=== PATIENT | female | born 1930 | race Caucasian/White ===

== ENCOUNTER 2016-07-25 13:55 | Emergency (ER) | payer OTHER, BC ==
[~2016-07-25] VITALS: Ht 157.5 cm; Wt 54.7 kg
[~2016-07-25 13:55] MED LIST: ACETAMINOPHN-T1 EACH PO; ADALAT CC 30 MG30 MG PO; AFEDITAB CR30 MG PO; ALEVE220 M2 PO; ALEVE220 MG PO; ASPIRIN81 M2 PO; ATIVAN0.5 MG PO; Aspirin E.C. PO; CALCIUM 500 +1 EAC1 PO; CALCIUM 600 +1 EAC4 PO; CENTRUM SILVER1 EAC4 PO; CHILDREN'S ASPI81 M1 PO; COZAAR100 MG PO; Cipro PO; Colace PO; Cozaar PO; DITROPAN5 MG PO; Ditropan PO; Dulcolax PO; ECOTRIN81 M1 PO; ERYTHROMYC1 APPLICAT BOTH EYES; FLEXERIL5 MG PO; FLOVENT 11120 INHALA IH; FOLIC ACID1 MG PO; FORTEO; FORTEO20 MICROGR SC; FOSAMAX70 MG PO; Fosamax PO; HYDROCODON-ACE1 EAC7 PO; LIDODERM 5% P1 PATCH PO; LIPO FLAVONOID PLUS PO; LIPO-FLAVONO1 TABLET PO; LO-DOSE ASPIRIN81 M1 PO; LOPRESSOR50 MG PO; LOTRISONE15 GM TP; LUBRICANT EYE D15 M2 BOTH EYES; Lopressor PO; METOPROLOL TART25 MG PO; METOPROLOL TART50 MG PO; MINITRAN1 EACH TD; MYRBETRIQ25 MG PO; NAPROSYN250 MG PO; NAPROXEN500 MG PO; NEXIUM40 MG PO; NIFEDICAL XL30 MG PO; NIFEDIPINE ER30 MG PO; NITRO-DUR1 EAC1 TD; NITROGLYCERIN0.4 MG SL; Nitrostat,NitroQuick SL; OS-CAL ULTRA T1 EACH; OSCAL, OYSTER500 MG PO; OSTEO BI-FLEX1 EAC1 PO; OSTEO BI-FLEX1 EAC2 PO; OSTEO BI-FLEX1 EAC3 PO; OSTEO-BIFLE1 CAPSULE PO; Oscal 500 w/Vitamin PO; Osteo-Biflex,Flex-A- PO; PROAIR HFA8.5 GM IH; PROCARDIA XL30 MG PO; Protonix PO; REFRESH EYE DR1 EACH OP; REFRESH OPTIVE; REFRESH5 ML BOTH EYES; SIMVASTATIN40 MG PO; SINGULAIR10 MG PO; SYSTANE 0.3-0.1 EACH BOTH EYES; SYSTANE 0.300 DROP/1 BOTH EYES; Senokot S,Pericolace PO; Singulair PO; TOPROL XL50 MG PO; TRAMADOL HCL50 MG PO; TRANSDERM-NITR0.4 MG TD; TYLENOL WITH C1 EACH PO; Theragran PO; Tylenol Regular Stre PO; ULTRACET1 TABLET PO; Ultracet PO; VALIUM5 MG PO; VESICARE10 MG PO; VICODIN,LORT1 TABLET PO; VITAMIN C1000 MG PO; VITAMIN D1000 UNIT PO; VITAMIN D31000 UNI2 PO; VITAMIN D31000 UNIT PO; VYTORIN 10-401 EACH PO; VYTORIN 10/41 TABLET PO; Vicodin,Norco 5/325 PO; Vitamin D PO; Vytorin 10/40 PO
[2016-07-25 15:59] LABS: HEMATOCRIT 35.4 % (36.0-46.0); MCH 29.6 PG (29.0-34.0); MCHC 32.8 G/DL (30.0-36.0); MCV 90.3 FL (83-99); MEAN PLAT.VOLUME 9.8 uM^3 (9.5-12.4); PLATELET COUNT 200 K/uL (156-360); RBC DIS.WIDTH-CV 14.3 % (11.8-14.6); RBC DIS.WIDTH-SD 47.3 % (39-53); RED BLOOD COUNT 3.92 M/uL (3.80-5.20); WHITE BLOOD COUNT 7.5 K/uL (4.1-10.2)
[2016-07-25 16:09] LABS: ERTH.SED.RATE 7 MM/HR (0-30)
[2016-07-25] MEDS ORDERED: NAPROSYN500 MG PO (16:27)
[2016-07-25] MEDS ORDERED: FLEXERIL5 MG PO (16:27)
[2016-07-25 16:41] VITALS: BP 110/51
== END 2016-07-25 16:43 | disposition home or self-care (01) ==
LOC: EME 13:55
PROVIDERS: Nurse Practitioner Family
DX: M25.511 Pain in right shoulder (principal); M19.011 Primary osteoarthritis, right shoulder; M62.838 Other muscle spasm; M54.2 Cervicalgia; Z79.82 Long term (current) use of aspirin
CPT/HCPCS: 73030; 85027; 85651; 86140; 99281; 99284

== ENCOUNTER 2017-02-08 07:57 | Day surgery (SDC) | payer OTHER, BC ==
[~2017-02-08] VITALS: Ht 157.5 cm; Wt 54.4 kg
[~2017-02-08 07:57] MED LIST changes: +NAPROSYN500 MG PO; +NITROGLYCERIN1 EAC1 TD; +PROCARDIA XL60 MG PO; +PROLIA60 MG/1 ML SC
[2017-02-08 08:40] VITALS: BP 134/68
[2017-02-08 12:06] VITALS: BP 178/67
[2017-02-08 13:04] VITALS: BP 148/65
== END 2017-02-08 13:05 | disposition home or self-care (01) ==
LOC: SDC 07:57
PROC: 0QP704Z Removal of Internal Fixation Device from Left Upper Femur, Open Approach (ICD-10-PCS; principal; 2017-02-08)
DX: T84.84XA Pain due to internal orthopedic prosthetic devices, implants and grafts, initial encounter (principal); I10 Essential (primary) hypertension; J45.909 Unspecified asthma, uncomplicated; E78.5 Hyperlipidemia, unspecified; I25.10 Atherosclerotic heart disease of native coronary artery without angina pectoris; F41.9 Anxiety disorder, unspecified; K21.9 Gastro-esophageal reflux disease without esophagitis; Z96.641 Presence of right artificial hip joint; Z88.2 Allergy status to sulfonamides
CPT/HCPCS: 73501; 76000; J0690; J1170; J3010

== ENCOUNTER 2017-08-28 20:05 | Emergency (ER) | payer OTHER, BC ==
[~2017-08-28] VITALS: Ht 157.5 cm; Wt 58.4 kg
[2017-08-28] MEDS ORDERED: PEN-VEE K,VEET500 MG PO (20:41)
[2017-08-28] MEDS ORDERED: NORCO 5/3251 TABLET PO (20:41)
[2017-08-28 21:02] VITALS: BP 187/56
== END 2017-08-28 20:42 | disposition home or self-care (01) ==
LOC: EME 20:05
DX: K02.9 Dental caries, unspecified (principal); Z79.82 Long term (current) use of aspirin; Z96.643 Presence of artificial hip joint, bilateral; Z88.2 Allergy status to sulfonamides; Z88.6 Allergy status to analgesic agent; Z88.5 Allergy status to narcotic agent; Z91.041 Radiographic dye allergy status
CPT/HCPCS: 99281; 99283

== ENCOUNTER 2017-10-04 07:10 | Emergency (ER) | payer OTHER, BC ==
[~2017-10-04] VITALS: Ht 162.6 cm; Wt 62.0 kg
[~2017-10-04 07:10] MED LIST changes: +NORCO 5/3251 TABLET PO; +PEN-VEE K,VEET500 MG PO
[2017-10-04 07:49] LABS: BASOPHIL (%) 0.5 % (0-1); EOSINOPHIL COUNT 0.1 K/uL (0-0.3); HEMATOCRIT 37.7 % (36.0-46.0); HEMOGLOBIN 12.6 G/DL (11.9-15.5); IMMATURE GRANULOCYTE (%) 0.3 % (0.0-0.7); LYMPHOCYTE (%) 17.8 % (15-42); LYMPHOCYTE COUNT 1.6 K/uL (1.0-2.8); MCHC 33.4 G/DL (30.0-36.0); MCV 92.6 FL (83-99); MONOCYTE (%) 8.2 % (3-12); MONOCYTE COUNT 0.7 K/uL (0-0.8); NEUTROPHIL (%) 72.2 % (45-76); NEUTROPHIL COUNT 6.3 K/uL (1.8-6.4); PLATELET COUNT 174 K/uL (156-360); RBC DIS.WIDTH-CV 13.1 % (11.8-14.6); RBC DIS.WIDTH-SD 44.5 % (39-53); RED BLOOD COUNT 4.07 M/uL (3.80-5.20); WHITE BLOOD COUNT 8.8 K/uL (4.1-10.2)
[2017-10-04 08:00] LABS: CHLORIDE 104 mEq/L (99-109); SODIUM 138 mEq/L (136-147)
[2017-10-04 08:02] LABS: GLUCOSE 128 mg/dL (70-99)
[2017-10-04 08:05] LABS: CREATININE 0.8 mg/dL (0.6-1.3); GFR ESTIMATE (CALCULATED) > 59 mL/min/
[2017-10-04 08:06] LABS: UREA NITROGEN (BUN) 16 mg/dL (9-23)
[2017-10-04] MEDS ORDERED: PERCOCET 5/31 TABLET PO (09:33)
[2017-10-04 10:18] VITALS: BP 119/66
== END 2017-10-04 10:36 | disposition home or self-care (01) ==
LOC: EME 07:10
PROVIDERS: Emergency Medicine
DX: M25.551 Pain in right hip (principal); J45.909 Unspecified asthma, uncomplicated; E78.5 Hyperlipidemia, unspecified; K21.9 Gastro-esophageal reflux disease without esophagitis; F41.9 Anxiety disorder, unspecified; N18.9 Chronic kidney disease, unspecified; Z96.643 Presence of artificial hip joint, bilateral; Z88.2 Allergy status to sulfonamides; Z88.6 Allergy status to analgesic agent
CPT/HCPCS: 73502; 80048; 85025; 99281; 99284